=== PATIENT | male | born 1980 | race African-American/Black ===

== ENCOUNTER 2016-11-04 14:56 | Emergency (ER) | payer OTHER ==
[~2016-11-04] VITALS: Ht 172.7 cm; Wt 72.0 kg
[~2016-11-04 14:56] MED LIST: DILA100C
[2016-11-04 15:02] VITALS: BP 119/75; PULSE 73; RESP 15; TEMP 98.4; O2SAT 98
[2016-11-04] MEDS ORDERED: ZOLO100T PO (15:10)
[2016-11-04] MEDS ORDERED: DEPA500T3 PO (15:10)
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
[2016-11-04] MEDS ORDERED: KETOROLAC TROMETHAMINE 30 MG/ML (IVP) VIAL IV PUSH ONE (15:30)
--- NOTE | 2016-11-04 15:42 | RADRPT ---
EXAM DATE/TIME: 11/04/2016 15:24 [facility] COMPARISON: No previous studies available for comparison. INDICATIONS : Chest pain. MEDICAL HISTORY : None. SURGICAL HISTORY : None. ENCOUNTER: Initial ACUITY: 2 weeks PAIN SCORE: 10/10 LOCATION: Left chest FINDINGS: A single view of the chest demonstrates the lungs to be symmetrically aerated without evidence of mas s, infiltrate or effusion. The cardiomediastinal contours are unremarkable. Osseous structures are intact. CONCLUSION: 1. No acute cardiopulmonary findings. Juliocesar Avery MD on November 04, 2016 at 15:40 Board Certified Radiologist. This report was verified electronically.
[2016-11-04 15:56] LABS: AUTOMATED NEUTROPHIL # 1.9 TH/MM3 (1.8-7.7); BASOPHIL % 0.9 % (0.0-2.0); EOSINOPHIL # 0.3 TH/MM3 (0-0.4); EOSINOPHIL % 5.1 % (0.0-4.0); HEMATOCRIT 39.9 % (39.0-51.0); HEMO FLAGS DIFF FINAL; LYMPHOCYTE # 2.6 TH/MM3 (1.0-4.8); MEAN CELL VOLUME 88.9 FL (80.0-100.0); MEAN CORPUSCULAR HEMOGLOBIN 30.6 PG (27.0-34.0); MEAN CORPUSCULAR HGB CONC 34.5 % (32.0-36.0); MONO % 9.1 % (0.0-8.0); NEUT % 35.9 % (16.0-70.0); PLATELET COUNT 203 TH/MM3 (150-450); RED BLOOD COUNT 4.49 MIL/MM3 (4.50-5.90); RED CELL DISTRIBUTION WIDTH 12.6 % (11.6-17.2); WHITE BLOOD COUNT 5.3 TH/MM3 (4.0-11.0)
[2016-11-04 16:25] LABS: ANION GAP 4 MEQ/L (5-15); BICARBONATE 29.1 MEQ/L (21.0-32.0); BLOOD UREA NITROGEN 15 MG/DL (7-18); CHLORIDE 107 MEQ/L (98-107); GLOMERULAR FILTRATION RATE 117 ML/MIN (>89); SODIUM (NA) 140 MEQ/L (136-145)
[2016-11-04 16:31] LABS: CREATINE KINASE 76 U/L (39-308); POTASSIUM 4.1 MEQ/L (3.5-5.1)
--- NOTE | 2016-11-05 20:59 | EKG ---
Date Performed: 11/04/2016 Time Performed: 15:25:10 PTAGE: 36 years EKG: Sinus rhythm ST ELEVATION, PROBABLY EARLY REPOLARIZATION BORDERLINE ECG PREVIOUS TRACING : 08/29/2003 12.58 Compared to prior tracing no significant change DOCTOR: Stefano Cox Interpretating Date/Time 11/05/2016 20:51:19
== END 2016-11-04 16:57 ==
LOC: NEPE 14:56
DX: R07.89 Other chest pain (principal); F41.9 Anxiety disorder, unspecified; G40.909 Epilepsy, unspecified, not intractable, without status epilepticus; J45.909 Unspecified asthma, uncomplicated; Z79.899 Other long term (current) drug therapy; Z88.8 Allergy status to other drugs, medicaments and biological substances
CPT/HCPCS: 71010; 80048; 82550; 84484; 85025; 93005; 96374; 99285; J1885

== ENCOUNTER 2016-12-16 15:14 | Emergency (ER) | payer SELFPAY ==
[~2016-12-16 15:14] MED LIST changes: +BUPR100CR PO; +DEPA500T3 PO; -DILA100C; +WELL200T PO; +ZOLO100T PO
--- NOTE | 2016-12-16 15:21 | PD ---
Physical Exam Date Seen by Provider: Dec 16, 2016 Time Seen by Provider: 15:20 Narrative 36-year-old black male presents to emergency department by EMS for evaluation of chest pain and anxiety. The patient is paranoid that people are out against him. He wants money and want to kill them. Symptoms are moderate to severe. No alleviating factors. Vital signs reviewed. Pt waiting for bed placement. [facility] Medical Record Reviewed: No Supervised Visit with JOUSÉ: Cricket Fernandez Dec 16, 2016 15:21
[2016-12-16 15:24] VITALS: BP 130/81; PULSE 109; RESP 16; TEMP 98.8; O2SAT 98
== END 2016-12-16 16:30 | disposition left against medical advice (07) ==
LOC: NEDAMB 15:14
DX: Z53.21 Procedure and treatment not carried out due to patient leaving prior to being seen by health care provider (principal); R07.9 Chest pain, unspecified
CPT/HCPCS: 99283

== ENCOUNTER 2016-12-19 06:28 | Emergency (ER) | payer SELFPAY ==
[~2016-12-19] VITALS: Ht 170.2 cm; Wt 71.0 kg
[2016-12-19 06:36] VITALS: BP 111/61; PULSE 102; RESP 22; TEMP 98.3; O2SAT 100
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
[2016-12-19] MEDS ORDERED: ASPIRIN 81 MG CHEW TAB PO ONE (07:15)
[2016-12-19] MEDS ORDERED: hydrOXYzine PAMOATE 25 MG CAP PO ONE (07:15)
[2016-12-19] MEDS ORDERED: SODIUM CHLORID 0.9% 500 ML INJ 500 ML IV ONE (07:15)
[2016-12-19] MEDS ORDERED: SODIUM CHLORIDE 0.9% FLUSH 10 ML FLUSH IVF PRN (07:15)
[2016-12-19 07:56] LABS: BASOPHIL % 0.5 % (0.0-2.0); EOSINOPHIL # 0.2 TH/MM3 (0-0.4); EOSINOPHIL % 2.8 % (0.0-4.0); HEMATOCRIT 36.1 % (39.0-51.0); HEMO FLAGS DIFF FINAL; LYMPHOCYTE # 1.6 TH/MM3 (1.0-4.8); MEAN CELL VOLUME 89.3 FL (80.0-100.0); MEAN CORPUSCULAR HEMOGLOBIN 30.9 PG (27.0-34.0); MEAN CORPUSCULAR HGB CONC 34.6 % (32.0-36.0); MONO % 12.6 % (0.0-8.0); NEUT % 60.1 % (16.0-70.0); PLATELET COUNT 249 TH/MM3 (150-450); RED BLOOD COUNT 4.04 MIL/MM3 (4.50-5.90); RED CELL DISTRIBUTION WIDTH 13.9 % (11.6-17.2); WHITE BLOOD COUNT 6.7 TH/MM3 (4.0-11.0)
[2016-12-19 08:19] VITALS: BP 120/61; PULSE 85; RESP 18; O2SAT 97
[2016-12-19 08:20] LABS: ALT (GPT) 39 U/L (12-78); ANION GAP 9 MEQ/L (5-15); AST (GOT) 82 U/L (15-37); BLOOD UREA NITROGEN 14 MG/DL (7-18); CHLORIDE 104 MEQ/L (98-107); GLOMERULAR FILTRATION RATE 122 ML/MIN (>89); MAGNESIUM 2.2 MG/DL (1.5-2.5); POTASSIUM 3.1 MEQ/L (3.5-5.1); SODIUM (NA) 141 MEQ/L (136-145)
[2016-12-19 08:24] LABS: ALKALINE PHOSPHATASE 74 U/L (45-117); TOTAL BILIRUBIN ADULT 0.7 MG/DL (0.2-1.0)
[2016-12-19] MEDS ORDERED: POTASSIUM CHLORIDE 20 MEQ CONTROLLED RELEASE TAB PO ONE (08:30)
[2016-12-19 08:44] LABS: CREATINE KINASE 3644 U/L (39-308)
[2016-12-19 09:15] LABS: CKMB 8.7 NG/ML (0.5-3.6)
--- NOTE | 2016-12-19 09:18 | EKG ---
Date Performed: 12/19/2016 Time Performed: 06:45:24 PTAGE: 36 years EKG: Sinus rhythm VOLTAGE CRITERIA FOR LVH ABNORMAL ECG Compared to prior tracing no significant change PREVIOUS TRACING : 11/04/2016 15.25 DOCTOR: Donald Murray Interpretating Date/Time 12/19/2016 09:17:03
== END 2016-12-19 09:47 | disposition home or self-care (01) ==
LOC: NEPE 06:28
DX: F43.22 Adjustment disorder with anxiety (principal); R07.9 Chest pain, unspecified; R94.31 Abnormal electrocardiogram [ECG] [EKG]; J45.909 Unspecified asthma, uncomplicated; F32.9 Major depressive disorder, single episode, unspecified; R56.9 Unspecified convulsions; Z79.899 Other long term (current) drug therapy; Z88.8 Allergy status to other drugs, medicaments and biological substances
CPT/HCPCS: 80053; 82550; 82552; 83735; 84484; 85025; 93005; 99284; J7040

== ENCOUNTER 2017-02-19 16:12 | Observation (INO) | payer OTHER ==
[~2017-02-19] VITALS: Ht 172.7 cm; Wt 75.9 kg
[2017-02-19 16:31] VITALS: BP 118/76; PULSE 68; RESP 16; TEMP 97.8; O2SAT 100
[2017-02-19 17:48] LABS: AUTOMATED NEUTROPHIL # 2.4 TH/MM3 (1.8-7.7); BASOPHIL % 0.7 % (0.0-2.0); EOSINOPHIL # 0.1 TH/MM3 (0-0.4); EOSINOPHIL % 2.6 % (0.0-4.0); HEMATOCRIT 37.4 % (39.0-51.0); HEMOGLOBIN 13.2 GM/DL (13.0-17.0); LYMPH % 37.3 % (9.0-44.0); LYMPHOCYTE # 1.9 TH/MM3 (1.0-4.8); MEAN CORPUSCULAR HEMOGLOBIN 31.4 PG (27.0-34.0); MEAN CORPUSCULAR HGB CONC 35.3 % (32.0-36.0); MEAN PLATELET VOLUME 10.4 FL (7.0-11.0); MONOCYTE # 0.6 TH/MM3 (0-0.9); NEUT % 48.4 % (16.0-70.0); PLATELET COUNT 250 TH/MM3 (150-450); RED BLOOD COUNT 4.21 MIL/MM3 (4.50-5.90); RED CELL DISTRIBUTION WIDTH 12.7 % (11.6-17.2)
[2017-02-19 18:04] LABS: CALCIUM 8.8 MG/DL (8.5-10.1); CREATININE 0.84 MG/DL (0.60-1.30)
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
[2017-02-19 19:48] VITALS: BP 110/65; PULSE 78; RESP 18; O2SAT 99
[2017-02-19] MEDS ORDERED: LORazepam 2 MG/ML VIAL ONE (20:07)
[2017-02-19] MEDS ORDERED: LORazepam 2 MG/ML VIAL IV PUSH ONE (20:15)
[2017-02-19] MEDS ORDERED: DIVALPROEX SODIUM E.R. 500 MG TAB PO ONE (20:30)
[2017-02-19 20:32] VITALS: BP 115/75; PULSE 88; O2SAT 100
--- NOTE | 2017-02-19 20:38 | RADRPT ---
EXAM DATE/TIME: 02/19/2017 19:53 [facility] COMPARISON: No previous studies available for comparison. INDICATIONS : Headaches, seizures today. RADIATION DOSE: 56.35 CTDIvol (mGy) MEDICAL HISTORY : Seizures. Asthma. SURGICAL HISTORY : None. ENCOUNTER: Initial ACUITY: 1 day PAIN SCALE: 8/10 LOCATION: Bilateral cranial TECHNIQUE: Multiple contiguous axial images were obtained of the head. Using automated exposure control and adj ustment of the mA and/or kV according to patient size, radiation dose was kept as low as reasonably a chievable to obtain optimal diagnostic quality images. DICOM format image data is available electro nically for review and comparison. FINDINGS: CEREBRUM: The ventricles are normal for age. No evidence of midline shift, mass lesion, hemorrhage or acute in farction. No extra-axial fluid collections are seen. There are faint calcifications within the basal ganglia bilaterally. POSTERIOR FOSSA: The cerebellum and brainstem are intact. The 4th ventricle is midline. The cerebellopontine angle i s unremarkable. EXTRACRANIAL: The visualized portion of the orbits is intact. SKULL: The calvaria is intact. No evidence of skull fracture. CONCLUSION: No acute disease. Jono Sneed MD on February 19, 2017 at 20:36 Board Certified Radiologist. This report was verified electronically.
[2017-02-19] MEDS ORDERED: levETIRAcetam INJ 100 ML IV ONE (21:30)
--- NOTE | 2017-02-19 21:38 | PD ---
Physical Exam Narrative I, Dr. Cutler, have reviewed the advance practice practitioner's documentation and am in agreement, met with the patient face to face, made the diagnosis, and the medical decision making was done by me. *My assessment and Findings: Patient is a 36 year old male who comes in from [facility] due to seizures. He has been refusing his seizure medication. Patient observed to have 2 seizures in the ED. When awake, he appears to have no neurologic abnormalities. Data Data Last Documented VS Vital Signs Date Time Temp Pulse Resp B/P (MAP) Pulse Ox O2 Delivery O2 Flow Rate FiO2 02/19/17 20:32 88 115/75 (88) 100 02/19/17 19:48 18 Room Air 02/19/17 16:31 97.8 Orders Orders Complete Blood Count With Diff (02/19/17 16:51) Basic Metabolic Panel (Bmp) (02/19/17 16:51) Drug Screen, Random Urine (02/19/17 16:51) Valproic Acid (Depakene) (02/19/17 19:47) Ct Brain W/O Iv Contrast(Rout) (02/19/17 ) Lorazepam Inj (Ativan Inj) (02/19/17 20:15) Lorazepam Inj (Ativan Inj) (02/19/17 20:07) Divalproex Er (Depakote Er) (02/19/17 20:30) Levetiracetam Inj (Keppra Inj) (02/19/17 21:30) Admit Order (Ed Use Only) (02/19/17 21:47) Labs Laboratory Tests Test 02/19/17 17:05 White Blood Count 5.0 TH/MM3 Red Blood Count 4.21 MIL/MM3 Hemoglobin 13.2 GM/DL Hematocrit 37.4 % Mean Corpuscular Volume 89.0 FL Mean Corpuscular Hemoglobin 31.4 PG Mean Corpuscular Hemoglobin Concent 35.3 % Red Cell Distribution Width 12.7 % Platelet Count 250 TH/MM3 Mean Platelet Volume 10.4 FL Neutrophils (%) (Auto) 48.4 % Lymphocytes (%) (Auto) 37.3 % Monocytes (%) (Auto) 11.0 % Eosinophils (%) (Auto) 2.6 % Basophils (%) (Auto) 0.7 % Neutrophils # (Auto) 2.4 TH/MM3 Lymphocytes # (Auto) 1.9 TH/MM3 Monocytes # (Auto) 0.6 TH/MM3 Eosinophils # (Auto) 0.1 TH/MM3 Basophils # (Auto) 0.0 TH/MM3 CBC Comment DIFF FINAL Differential Comment Blood Urea Nitrogen 13 MG/DL Creatinine 0.84 MG/DL Random Glucose 91 MG/DL Calcium Level 8.8 MG/DL Sodium Level 143 MEQ/L Potassium Level 3.7 MEQ/L Chloride Level 106 MEQ/L Carbon Dioxide Level 32.0 MEQ/L Anion Gap 5 MEQ/L Estimat Glomerular Filtration Rate 127 ML/MIN Valproic Acid (Depakene) Level 24 MCG/ML MDM Supervised Visit with JOSUÉ: Yes Narrative Course Given ativan for the seizures. Loaded with Korbit. Admitted for further management. Diagnosis Primary Impression: Seizure Admitting Information Admitting Physician Requests: Admit Patsy Cutler MD Feb 19, 2017 21:38
[2017-02-19] MEDS ORDERED: SODIUM CHLORIDE 0.9% FLUSH 10 ML FLUSH IV FLUSH PRN (22:30)
[2017-02-19] MEDS ORDERED: LORazepam 2 MG/ML VIAL IV PUSH PRN (23:00)
[2017-02-20 01:48] VITALS: BP 108/54; PULSE 78; RESP 20; TEMP 97.7; O2SAT 100
[2017-02-20] MEDS: levETIRAcetam 500 MG TAB PO SCH ×3 (05:42→20:36)
[2017-02-20 06:05] VITALS: BP 124/96; PULSE 114; RESP 20; TEMP 97.7; O2SAT 100
[2017-02-20 07:16] LABS: AUTOMATED NEUTROPHIL # 2.4 TH/MM3 (1.8-7.7); BASOPHIL % 0.5 % (0.0-2.0); EOSINOPHIL # 0.1 TH/MM3 (0-0.4); EOSINOPHIL % 2.2 % (0.0-4.0); HEMATOCRIT 36.6 % (39.0-51.0); HEMOGLOBIN 12.8 GM/DL (13.0-17.0); LYMPHOCYTE # 2.2 TH/MM3 (1.0-4.8); MEAN CELL VOLUME 88.5 FL (80.0-100.0); MEAN PLATELET VOLUME 10.2 FL (7.0-11.0); MONO % 12.6 % (0.0-8.0); MONOCYTE # 0.7 TH/MM3 (0-0.9); NEUT % 44.7 % (16.0-70.0); PLATELET COUNT 248 TH/MM3 (150-450); RED BLOOD COUNT 4.14 MIL/MM3 (4.50-5.90); RED CELL DISTRIBUTION WIDTH 12.7 % (11.6-17.2); WHITE BLOOD COUNT 5.4 TH/MM3 (4.0-11.0)
[2017-02-20 07:35] LABS: BICARBONATE 28.7 MEQ/L (21.0-32.0); CALCIUM 8.3 MG/DL (8.5-10.1); CREATININE 0.81 MG/DL (0.60-1.30)
[2017-02-20 08:00] VITALS: BP 99/62; PULSE 61; RESP 16; TEMP 97.9; O2SAT 99
[2017-02-20] MEDS ORDERED: DIVALPROEX SODIUM E.R. 500 MG TAB PO SCH (09:00)
[2017-02-20] MEDS: SODIUM CHLORIDE 0.9% FLUSH 10 ML FLUSH IV FLUSH SCH ×2 (09:00→20:36)
[2017-02-20] MEDS ORDERED: PNEUMOCOCCAL POLYVALENT INJ 25 MCG/0.5 ML SYR IM ONE (10:00)
[2017-02-20] MEDS ORDERED: INFLUENZA VIRUS VACCINE (QUADRIVALENT) 0.5 ML SYR IM ONE (10:00)
[2017-02-20 12:00] VITALS: BP 101/57; PULSE 50; RESP 18; TEMP 98.2; O2SAT 95
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
[2017-02-20] MEDS ORDERED: POTASSIUM CHLORIDE 10 MEQ CONTROLLED RELEASE TAB PO ONE (15:00)
[2017-02-20 16:00] VITALS: BP 108/63; PULSE 65; RESP 18; TEMP 97.9; O2SAT 100
[2017-02-20] MEDS ORDERED: BISACODYL 10 MG SUPP RECTAL PRN (18:45)
[2017-02-20] MEDS ORDERED: SENNOSIDES 8.6 MG TAB PO PRN (18:45)
[2017-02-20] MEDS ORDERED: LACTULOSE SYRUP 20 GM/30 ML CUP PO PRN (18:45)
[2017-02-20] MEDS ORDERED: NALOXONE HCL 0.4 MG/ML AMP IV PUSH PRN (18:45)
[2017-02-20] MEDS ORDERED: LORazepam 2 MG/ML VIAL IV PUSH PRN (18:45)
--- NOTE | 2017-02-20 19:17 | MG ---
cc: MORENITA BENTON M.D. Lab No: 18-05 Date: 02/20/2017 Age: Sex: M Race: TECHNIQUE: 17 channel EEG. DESCRIPTION: Background rhythm is symmetrical alpha, frequency 8 Hz, amplitude 20 microvolts. There is mild muscle artifact present. No lateralizing features identified. No epileptiform features are seen. During drowsiness there is slowing in the theta range. Photic results in a normal driving response. Hyperventilation does not alter the background rhythm. INTERPRETATION: Normal EEG. MD JULIANNE Guthrie/ERLIN /5:55 PM /6:47 PM
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
[2017-02-20 20:00] VITALS: BP 126/82; PULSE 84; RESP 18; TEMP 98.2; O2SAT 100
[2017-02-20] MEDS ORDERED: VALPROATE INJ 500 MG in SODIUM CHLORIDE 0.9% INJ 100 ML IV ONE (20:00)
[2017-02-20] MEDS: SODIUM CHLOR 0.9% 1000 ML INJ 1,000 ML IV SCH (20:34)
[2017-02-20] MEDS: DIVALPROEX SODIUM E.R. 500 MG TAB PO SCH (20:35)
[2017-02-20] MEDS: DOCUSATE SODIUM 50 MG/SENNA 8.6 MG TAB PO SCH (20:36)
[2017-02-21] VITALS: BP_SYST 117; BP_SYST 128; BP_DIAS 67; BP_DIAS 87; PULSE 74; PULSE 81; RESP 18; TEMP 97; TEMP 98.5; O2SAT 97; O2SAT 98
[2017-02-21] MEDS: MAGNESIUM HYDROXIDE SUSP 30 ML CUP PO PRN (01:16)
[2017-02-21 01:39] LABS: BILIRUBIN, URINE NEG (NEG); BLOOD, URINE NEG (NEG); GLUCOSE,URINE NEG (NEG); KETONE, URINE NEG (NEG); MUCUS URINE FEW /lpf (OCC); NITRITE,URINE NEG (NEG); PH, URINE 7.5 (5.0-8.5); URINE COLOR YELLOW (YELLW/STRAW); URINE LEUKOCYTE ESTERASE NEG (NEG)
[2017-02-21] MEDS: SODIUM CHLOR 0.9% 1000 ML INJ 1,000 ML IV SCH (05:00)
[2017-02-21 08:23] VITALS: BP 103/59; PULSE 84; RESP 20; TEMP 98.5; O2SAT 100
[2017-02-21] MEDS: SODIUM CHLORIDE 0.9% FLUSH 10 ML FLUSH IV FLUSH SCH ×2 (09:00→20:51)
[2017-02-21] MEDS: DIVALPROEX SODIUM E.R. 500 MG TAB PO SCH ×2 (09:29→20:50)
[2017-02-21] MEDS: DOCUSATE SODIUM 50 MG/SENNA 8.6 MG TAB PO SCH ×2 (09:29→20:50)
[2017-02-21] MEDS: levETIRAcetam 500 MG TAB PO SCH ×2 (09:29→20:50)
--- NOTE | 2017-02-21 09:52 | HHI.PR ---
Subjective Remarks Follow-up seizure. The patient has reportedly had more seizure activity today. Nursing was called into the room by the corrections officers stating that the patient was appearing to have a seizure. There is concern from the nursing staff that these episodes are behavioral rather than true seizures. They believe that he is biting his cheek to induce bleeding. He at times is responsive during the events. There is no bowel or bladder incontinence. Patient reportedly had one of these episodes during EEG, which did not show any seizure activity. Objective Vitals Vital Signs Date Time Temp Pulse Resp B/P (MAP) Pulse Ox O2 Delivery O2 Flow Rate FiO2 02/21/17 08:23 98.5 84 20 103/59 (74) 100 02/21/17 00:00 97.0 81 18 117/67 (84) 97 02/21/17 00:00 98.5 74 18 128/87 (101) 98 02/20/17 20:00 98.2 84 18 126/82 (97) 100 02/20/17 16:00 97.9 65 18 108/63 (78) 100 02/20/17 12:00 98.2 50 18 101/57 (72) 95 I/O 02/20/17 02/20/17 02/20/17 02/21/17 02/21/17 02/21/17 07:00 15:00 23:00 07:00 15:00 23:00 Intake Total 825 ml 700 ml Output Total 800 ml Balance 825 ml -100 ml Intake Oral 720 ml IV Total 105 ml 700 ml Output Urine Total 800 ml Bladder Scan Volume Amount 450 ml 30 ml # Voids 1 Result Diagram: 02/20/17 0613 02/20/17 0613 Imaging Last Impressions Head CT 02/19/17 0000 Signed Impressions: Service Date/Time: February 19:53 - CONCLUSION: No acute disease. Jono Sneed MD Objective Remarks General: No acute distress. Heart: Regular rate and rhythm. No murmur. Lungs: Clear to auscultation bilaterally. No wheezes, rales, or rhonchi. Breathing is nonlabored. Abdomen: Soft, nontender, nondistended. Extremities: No lower extremity edema. Psych: Sleeping/sedated. Patient appears to wake up, but does not answer any questions. Procedures None Urinary Catheter: No Vascular Central Line Catheter: No A/P Assessment and Plan 1. Seizures: Appreciate neurology recommendations. Continue Depakote, Keppra. Ativan as needed. There may be a behavioral component with possible pseudoseizures. EEG was normal despite patient having a "seizure episode" during the EEG. 2. Urinary retention: Per nursing, bladder scan shows [address] Howard catheter. 3. Depression: Resume Zoloft, Wellbutrin. 4. Mild hypokalemia: Monitor labs. 5. DVT prophylaxis: Lovenox. Khari Sanchez MD Feb 21, 2017 09:52
[2017-02-21] MEDS: buPROPion HCL 100 MG SUSTAINED RELEASE TAB PO SCH ×2 (10:00→20:49)
[2017-02-21] MEDS: SERTRALINE HCL 100 MG TAB PO SCH (11:17)
[2017-02-21] MEDS: ENOXAPARIN SODIUM 40 MG/0.4 ML SYRINGE SQ SCH (11:17)
[2017-02-21] MEDS: NS + KCL 20 MEQ INJ 1,000 ML IV SCH (11:17)
[2017-02-21 12:05] VITALS: BP 101/56; PULSE 74; RESP 20; TEMP 98.4; O2SAT 99
--- NOTE | 2017-02-21 15:29 | HHI.PR ---
Review/Management Diagnosis seizure due to noncompliance with anticonvulsants Plan check valproic acid level in am Diagnosis/Plan: Subjective Subjective Comments No acute events reported Active Medications Current Medications Medications (Trade) Dose Ordered Sig/Kobe Route Start Time Stop Time Status Last Admin (NS Flush) 2 ml UNSCH PRN IV FLUSH 02/19/17 22:30 (NS Flush) 2 ml BID IV FLUSH 02/20/17 09:00 02/21/17 09:00 (Depakote Er) 500 mg BID PO 02/20/17 21:00 02/21/17 09:29 (Keppra) 1,000 mg Q12HR PO 02/20/17 21:00 02/21/17 09:29 (Ativan Inj) 1 mg Q4H PRN IV PUSH 02/20/17 18:45 (Narcan Inj) 0.4 mg UNSCH PRN IV PUSH 02/20/17 18:45 (Jill-Colace) 1 tab BID PO 02/20/17 21:00 02/21/17 09:29 (Milk Of Magnesia Liq) 30 ml Q12H PRN PO 02/20/17 18:45 02/21/17 01:16 (Senokot) 17.2 mg Q12H PRN PO 02/20/17 18:45 (Dulcolax Supp) 10 mg DAILY PRN RECTAL 02/20/17 18:45 (Lactulose Liq) 30 ml DAILY PRN PO 02/20/17 18:45 (Wellbutrin Sr 12 Hr) 200 mg Q12HR PO 02/21/17 10:00 (Zoloft) 200 mg DAILY PO 02/21/17 10:00 02/21/17 11:17 Potassium Chloride/Sodium Chloride 1,000 ml @ 70 mls/hr [id number] IV 02/21/17 10:00 02/21/17 11:17 (Lovenox Inj) 40 mg Q24H SQ 02/21/17 11:00 02/21/17 11:17 Allergies Allergies Coded Allergies chlorpromazine (Unverified Allergy, Unknown, 02/19/17) haloperidol (Verified Allergy, Unknown, 02/19/17) Exam I&O / VS 02/21/17 02/21/17 02/22/17 15:00 23:00 07:00 Intake Total 400 ml Balance 400 ml IV Total 400 ml Bladder Scan Volume Amount 500 ml Vital Signs Date Time Temp Pulse Resp B/P (MAP) Pulse Ox O2 Delivery O2 Flow Rate FiO2 02/21/17 12:05 98.4 74 20 101/56 (71) 99 02/21/17 08:23 98.5 84 20 103/59 (74) 100 02/21/17 00:00 97.0 81 18 117/67 (84) 97 02/21/17 00:00 98.5 74 18 128/87 (101) 98 02/20/17 20:00 98.2 84 18 126/82 (97) 100 02/20/17 16:00 97.9 65 18 108/63 (78) 100 Objective Micro and Labs Laboratory Tests Test 02/21/17 00:15 Urine Color YELLOW Urine Turbidity CLEAR Urine pH 7.5 Urine Specific [place] 1.017 Urine Protein NEG Urine Glucose (UA) NEG Urine Ketones NEG Urine Occult Blood NEG Urine Nitrite NEG Urine Bilirubin NEG Urine Urobilinogen 2.0 Urine Leukocyte Esterase NEG Urine WBC LESS THAN 1 Urine Mucus FEW Microscopic Urinalysis Comment CULT NOT INDICATED Urine Opiates Screen NEG Urine Barbiturates Screen NEG Urine Amphetamines Screen NEG Urine Benzodiazepines Screen NEG Urine Cocaine Screen NEG Urine Cannabinoids Screen NEG Justen Cardenas MD PhD Feb 21, 2017 15:29
[2017-02-21 17:00] VITALS: BP 101/50; PULSE 84; RESP 20; TEMP 98.4; O2SAT 97
[2017-02-21 18:18] LABS: AUTOMATED NEUTROPHIL # 3.1 TH/MM3 (1.8-7.7); BASOPHIL % 0.6 % (0.0-2.0); EOSINOPHIL # 0.2 TH/MM3 (0-0.4); EOSINOPHIL % 2.3 % (0.0-4.0); HEMATOCRIT 36.6 % (39.0-51.0); HEMOGLOBIN 12.8 GM/DL (13.0-17.0); LYMPH % 42.1 % (9.0-44.0); LYMPHOCYTE # 2.9 TH/MM3 (1.0-4.8); MEAN CELL VOLUME 90.5 FL (80.0-100.0); MEAN CORPUSCULAR HEMOGLOBIN 31.7 PG (27.0-34.0); MEAN PLATELET VOLUME 10.4 FL (7.0-11.0); MONO % 9.5 % (0.0-8.0); MONOCYTE # 0.7 TH/MM3 (0-0.9); NEUT % 45.5 % (16.0-70.0); PLATELET COUNT 265 TH/MM3 (150-450); RED BLOOD COUNT 4.05 MIL/MM3 (4.50-5.90); RED CELL DISTRIBUTION WIDTH 12.9 % (11.6-17.2); WHITE BLOOD COUNT 6.8 TH/MM3 (4.0-11.0)
[2017-02-21 18:42] LABS: CALCIUM 8.3 MG/DL (8.5-10.1); CREATININE 1.15 MG/DL (0.60-1.30)
[2017-02-21 20:52] VITALS: BP 120/56; RESP 18; TEMP 98.5; O2SAT 100
[2017-02-22] VITALS (7 sets, daily range): BP systolic 112–126; BP diastolic 56–66; PULSE 66–91; RESP 18–20; TEMP 97.7–98.7; O2SAT 98–100
[2017-02-22] MEDS: NS + KCL 20 MEQ INJ 1,000 ML IV SCH ×4 (00:29→21:54)
[2017-02-22] MEDS: levETIRAcetam 500 MG TAB PO SCH ×2 (08:51→20:54)
[2017-02-22] MEDS: SERTRALINE HCL 100 MG TAB PO SCH (08:52)
[2017-02-22] MEDS: DIVALPROEX SODIUM E.R. 500 MG TAB PO SCH ×2 (08:52→20:54)
[2017-02-22] MEDS: DOCUSATE SODIUM 50 MG/SENNA 8.6 MG TAB PO SCH ×2 (08:52→20:54)
[2017-02-22] MEDS: buPROPion HCL 100 MG SUSTAINED RELEASE TAB PO SCH ×2 (08:52→20:54)
[2017-02-22] MEDS: SODIUM CHLORIDE 0.9% FLUSH 10 ML FLUSH IV FLUSH SCH ×2 (09:00→20:54)
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
--- NOTE | 2017-02-22 11:16 | RADRPT ---
EXAM DATE/TIME: 02/22/2017 10:26 [place] COMPARISON: CHEST SINGLE AP, November 04, 2016, 15:24. INDICATIONS : Chest pain and shortness of breath. MEDICAL HISTORY : Seizures. Asthma SURGICAL HISTORY : None. ENCOUNTER: Subsequent ACUITY: 2 months PAIN SCORE: 8/10 LOCATION: Bilateral chest FINDINGS: A single view of the chest demonstrates the lungs to be symmetrically aerated without evidence of mas s, infiltrate or effusion. The cardiomediastinal contours are unremarkable. Osseous structures are intact. CONCLUSION: No acute disease. Rodrigo Sheffield MD on February 22, 2017 at 11:14 Board Certified Radiologist. This report was verified electronically.
[2017-02-22] MEDS: ENOXAPARIN SODIUM 40 MG/0.4 ML SYRINGE SQ SCH (11:22)
[2017-02-23 01:34] VITALS: BP 118/62; PULSE 68; RESP 17; TEMP 98.7; O2SAT 100
[2017-02-23] MEDS: MAGNESIUM HYDROXIDE SUSP 30 ML CUP PO PRN (04:54)
[2017-02-23 06:50] VITALS: BP 125/66; PULSE 72; RESP 18; TEMP 99.1; O2SAT 100
[2017-02-23] MEDS: NS + KCL 20 MEQ INJ 1,000 ML IV SCH ×2 (07:54→23:30)
[2017-02-23 08:31] VITALS: BP 123/72; PULSE 72; RESP 18; TEMP 98.7; O2SAT 100
[2017-02-23] MEDS: DOCUSATE SODIUM 50 MG/SENNA 8.6 MG TAB PO SCH ×2 (09:35→21:44)
[2017-02-23] MEDS: buPROPion HCL 100 MG SUSTAINED RELEASE TAB PO SCH ×2 (09:36→21:45)
[2017-02-23] MEDS: DIVALPROEX SODIUM E.R. 500 MG TAB PO SCH ×2 (09:36→21:43)
[2017-02-23] MEDS: SERTRALINE HCL 100 MG TAB PO SCH (09:36)
[2017-02-23] MEDS: levETIRAcetam 500 MG TAB PO SCH ×2 (09:36→21:44)
[2017-02-23] MEDS: SODIUM CHLORIDE 0.9% FLUSH 10 ML FLUSH IV FLUSH SCH ×2 (09:36→21:44)
--- NOTE | 2017-02-23 10:02 | HHI.PR ---
Subjective Remarks Follow up seizures, urinary retention. Patient has not had any further seizure activity per nursing. He reports pain and weakness of the right leg. Objective Vitals Vital Signs Date Time Temp Pulse Resp B/P (MAP) Pulse Ox O2 Delivery O2 Flow Rate FiO2 02/23/17 08:31 98.7 72 18 123/72 (89) 100 02/23/17 06:50 99.1 72 18 125/66 (85) 100 02/23/17 01:34 98.7 68 17 118/62 (80) 100 02/22/17 20:44 98.6 91 19 121/64 (83) 98 02/22/17 20:00 98.6 91 19 121/64 (83) 98 02/22/17 16:13 98.2 66 20 126/60 (82) 99 02/22/17 12:48 97.7 67 20 113/56 (75) 99 I/O 02/22/17 02/22/17 02/22/17 02/23/17 02/23/17 02/23/17 07:00 15:00 23:00 07:00 15:00 23:00 Intake Total 1500 ml 1560 ml 1000 ml Output Total 2500 ml 1000 ml 900 ml Balance -1000 ml 560 ml -900 ml 1000 ml IV Total 1500 ml 1560 ml 1000 ml Output Urine Total 2500 ml 1000 ml 900 ml # Voids 1 Result Diagram: 02/21/17 1700 02/21/17 1700 Imaging Last Impressions Chest X-Ray 02/22/17 0000 Signed Impressions: Service Date/Time: Wednesday, February 22, 2017 10:26 - CONCLUSION: No acute disease. Rodrigo Sheffield MD Head CT 02/19/17 0000 Signed Impressions: Service Date/Time: February 19:53 - CONCLUSION: No acute disease. Jono Sneed MD Objective Remarks General: No acute distress. Heart: Regular rate and rhythm. No murmur. Lungs: Clear to auscultation bilaterally. No wheezes, rales, or rhonchi. Breathing is nonlabored. Abdomen: Soft, nontender, nondistended. Extremities: No lower extremity edema. Psych: Alert, answers questions appropriately. Procedures None Urinary Catheter: No Vascular Central Line Catheter: No A/P Assessment and Plan 1. Seizures: Appreciate neurology recommendations. Continue Depakote, Keppra. Ativan as needed. There may be a behavioral component with possible pseudoseizures. EEG was normal despite patient having a "seizure episode" during the EEG. Serum Depakote level is therapeutic. 2. Urinary retention: Failed void trial yesterday. Howard catheter replaced. Consult urology. 3. Depression: Resume Zoloft, Wellbutrin. 4. Mild hypokalemia: Resolved. 5. DVT prophylaxis: Lovenox. 6. Cough: CXR is negative. Not requiring supplemental oxygen. Discharge Planning Plan for discharge when cleared by neurology, urology. Khari Sanchez MD Feb 23, 2017 10:02
[2017-02-23] MEDS: ENOXAPARIN SODIUM 40 MG/0.4 ML SYRINGE SQ SCH (11:00)
[2017-02-23 12:44] VITALS: BP 111/59; PULSE 88; RESP 17; TEMP 98.8; O2SAT 99
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
[2017-02-23 16:51] VITALS: BP 126/62; PULSE 76; RESP 18; TEMP 98.7; O2SAT 98
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
[2017-02-23 20:00] VITALS: BP 117/65; PULSE 79; RESP 20; TEMP 97.5; O2SAT 99
[2017-02-24] VITALS: BP 117/60; PULSE 79; RESP 20; TEMP 98.3; O2SAT 98
[2017-02-24 04:00] VITALS: BP 104/61; PULSE 76; RESP 20; TEMP 98.1; O2SAT 100
[2017-02-24 08:00] VITALS: BP 115/70; PULSE 72; RESP 18; TEMP 99; O2SAT 99
[2017-02-24] MEDS: SODIUM CHLORIDE 0.9% FLUSH 10 ML FLUSH IV FLUSH SCH ×2 (09:00→21:20)
[2017-02-24] MEDS: levETIRAcetam 500 MG TAB PO SCH ×2 (10:35→21:21)
[2017-02-24] MEDS: buPROPion HCL 100 MG SUSTAINED RELEASE TAB PO SCH ×2 (10:35→21:21)
[2017-02-24] MEDS: DIVALPROEX SODIUM E.R. 500 MG TAB PO SCH ×2 (10:35→21:21)
[2017-02-24] MEDS: ENOXAPARIN SODIUM 40 MG/0.4 ML SYRINGE SQ SCH (10:36)
[2017-02-24] MEDS: SERTRALINE HCL 100 MG TAB PO SCH (10:36)
[2017-02-24] MEDS: DOCUSATE SODIUM 50 MG/SENNA 8.6 MG TAB PO SCH ×2 (10:36→21:20)
--- NOTE | 2017-02-24 11:18 | HHI.PR ---
Subjective Remarks Follow up right leg weakness. The patient states that he vomited blood today. Still with weakness of his right leg. Objective Vitals Vital Signs Date Time Temp Pulse Resp B/P (MAP) Pulse Ox O2 Delivery O2 Flow Rate FiO2 02/24/17 08:00 99.0 72 18 115/70 (85) 99 02/24/17 04:00 98.1 76 20 104/61 (75) 100 02/24/17 00:00 98.3 79 20 117/60 (79) 98 02/23/17 20:00 97.5 79 20 117/65 (82) 99 02/23/17 16:51 98.7 76 18 126/62 (83) 98 02/23/17 12:44 98.8 88 17 111/59 (76) 99 I/O 02/23/17 02/23/17 02/23/17 02/24/17 02/24/17 02/24/17 07:00 15:00 23:00 07:00 15:00 23:00 Intake Total 1960 ml Output Total 900 ml 1400 ml 2800 ml Balance -900 ml 560 ml -2800 ml Intake Oral 960 ml IV Total 1000 ml Output Urine Total 900 ml 1400 ml 2800 ml Result Diagram: 02/21/17 1700 02/21/17 1700 Imaging Last Impressions Lumbar Spine MRI 02/23/17 1310 Signed Impressions: Service Date/Time: Thursday, February 23, 2017 14:45 - CONCLUSION: 1. At L5-S1 there are bilateral pars defects with a grade 1 anterolisthesis and a broad based disc bulge or mild protrusion. This results in moderate bilateral foraminal stenosis with some mild flattening of the exiting L5 nerve roots bilaterally. Cricket Molina MD Tibia/Fibula X-Ray 02/23/17 0000 Signed Impressions: Service Date/Time: Thursday, February 23, 2017 14:33 - CONCLUSION: Negative for fracture or foreign body Casey Avery MD FACR Chest X-Ray 02/22/17 0000 Signed Impressions: Service Date/Time: Wednesday, February 22, 2017 10:26 - CONCLUSION: No acute disease. Rodrigo Sheffield MD Head CT 02/19/17 0000 Signed Impressions: Service Date/Time: February 19:53 - CONCLUSION: No acute disease. Jono Sneed MD Objective Remarks General: No acute distress. Heart: Regular rate and rhythm. No murmur. Lungs: Clear to auscultation bilaterally. No wheezes, rales, or rhonchi. Breathing is nonlabored. Abdomen: Soft, nontender, nondistended. Extremities: No lower extremity edema. Weakness of right leg on exam (1-2/5 strength). Psych: Alert, answers questions appropriately. Procedures None Urinary Catheter: No Vascular Central Line Catheter: No A/P Assessment and Plan 1. Seizures: Appreciate neurology recommendations. Continue Depakote, Keppra. Ativan as needed. There may be a behavioral component with possible pseudoseizures. EEG was normal despite patient having a "seizure episode" during the EEG. Serum Depakote level is therapeutic. 2. Urinary retention: Failed void trial yesterday. Howard catheter replaced. Consult urology. 3. Depression: Resume Zoloft, Wellbutrin. 4. Mild hypokalemia: Resolved. 5. DVT prophylaxis: Lovenox. 6. Cough: CXR is negative. Not requiring supplemental oxygen. 7. Right leg weakness: Appreciate neurosurgery recommendations. MRI lumbar spine noted. Awaiting PT eval and further neurology evaluation. I spoke with the correction physician who states that if the patient is discharged, he will be transferred to their medical observation unit and outpatient follow up will be arranged. Discharge Planning Possible discharge back to department of corrections today if OK with neurology. Khari Sanchez MD Feb 24, 2017 11:18
[2017-02-24 12:29] VITALS: BP 101/68; PULSE 90; RESP 18; TEMP 98.6; O2SAT 98
[2017-02-24] MEDS ORDERED: LEVE500 PO (15:02)
[2017-02-24] MEDS ORDERED: DEPA500T3 PO (15:02)
--- NOTE | 2017-02-24 15:03 | HHI.DCPOC ---
Discharge Care Plan Diagnosis: (1) Urinary retention (2) Right leg weakness (3) Seizure Goals to Promote Your Health * To prevent worsening of your condition and complications * To maintain your health at the optimal level Directions to Meet Your Goals Take your medications as prescribed Follow your dietary instruction Follow activity as directed Keep your appointments as scheduled Take your immunizations and boosters as scheduled If your symptoms worsen call your PCP, if no PCP go to Urgent Care Center or Emergency Room Smoking is Dangerous to Your Health. Avoid second hand smoke Call the 24-hour hour crisis hotline for domestic abuse at Khari Sanchez MD Feb 24, 2017 15:03
[2017-02-24 16:00] VITALS: BP 111/58; PULSE 82; RESP 16; TEMP 97.8; O2SAT 96
[2017-02-24 20:00] VITALS: BP 108/54; PULSE 76; RESP 20; TEMP 97.5; O2SAT 99
--- NOTE | 2017-02-24 21:50 | HHI.PR ---
Review/Management Diagnosis seizure due to noncompliance with anticonvulsants stable now on therapeutic doses MRI reveals stenosis at L5-S1. ALso r/o thoracic or cervical myelopathy as cause of LE weakness Plan MRI cervical and lumbar spines Diagnosis/Plan: Subjective Subjective Comments No acute events reported No further seizures He has low back pain and is numb entire right leg. He states right leg is weak and is unable to lift the leg Active Medications Current Medications Medications (Trade) Dose Ordered Sig/Kobe Route Start Time Stop Time Status Last Admin (NS Flush) 2 ml UNSCH PRN IV FLUSH 02/19/17 22:30 (NS Flush) 2 ml BID IV FLUSH 02/20/17 09:00 02/24/17 21:20 (Depakote Er) 500 mg BID PO 02/20/17 21:00 02/24/17 21:21 (Keppra) 1,000 mg Q12HR PO 02/20/17 21:00 02/24/17 21:21 (Ativan Inj) 1 mg Q4H PRN IV PUSH 02/20/17 18:45 (Narcan Inj) 0.4 mg UNSCH PRN IV PUSH 02/20/17 18:45 (Jill-Colace) 1 tab BID PO 02/20/17 21:00 02/24/17 21:20 (Milk Of Magnesia Liq) 30 ml Q12H PRN PO 02/20/17 18:45 02/23/17 04:54 (Senokot) 17.2 mg Q12H PRN PO 02/20/17 18:45 (Dulcolax Supp) 10 mg DAILY PRN RECTAL 02/20/17 18:45 02/22/17 06:25 (Lactulose Liq) 30 ml DAILY PRN PO 02/20/17 18:45 (Wellbutrin Sr 12 Hr) 200 mg Q12HR PO 02/21/17 10:00 02/24/17 21:21 (Zoloft) 200 mg DAILY PO 02/21/17 10:00 02/24/17 10:36 Potassium Chloride/Sodium Chloride 1,000 ml @ 70 mls/hr [id number] IV 02/21/17 10:00 02/23/17 23:30 (Lovenox Inj) 40 mg Q24H SQ 02/21/17 11:00 02/24/17 10:36 Allergies Allergies Coded Allergies chlorpromazine (Unverified Allergy, Unknown, 02/19/17) haloperidol (Verified Allergy, Unknown, 02/19/17) Exam I&O / VS 02/24/17 02/24/17 02/25/17 15:00 23:00 07:00 Output Total 2800 ml Balance -2800 ml Output Urine Total 2800 ml Vital Signs Date Time Temp Pulse Resp B/P (MAP) Pulse Ox O2 Delivery O2 Flow Rate FiO2 02/24/17 16:00 97.8 82 16 111/58 (75) 96 02/24/17 12:29 98.6 90 18 101/68 (79) 98 02/24/17 08:00 99.0 72 18 115/70 (85) 99 02/24/17 04:00 98.1 76 20 104/61 (75) 100 02/24/17 00:00 98.3 79 20 117/60 (79) 98 Exam Comments alert, speech normal CN intact MOTOR 5/5 BUE . 5/5 LLE 1/5 right iliopsoas, quad, hamstring, tibialis anterior DTR 1+ BUE and BLE , no Babinski Justen Cardenas MD PhD Feb 24, 2017 21:50
[2017-02-25] VITALS: BP 108/57; PULSE 80; RESP 20; TEMP 98.4; O2SAT 98
[2017-02-25] MEDS: NS + KCL 20 MEQ INJ 1,000 ML IV SCH (02:55)
[2017-02-25 04:00] VITALS: BP 117/67; PULSE 78; RESP 20; TEMP 98.3; O2SAT 99
[2017-02-25] MEDS: buPROPion HCL 100 MG SUSTAINED RELEASE TAB PO SCH (08:19)
[2017-02-25] MEDS: DOCUSATE SODIUM 50 MG/SENNA 8.6 MG TAB PO SCH (08:19)
[2017-02-25] MEDS: levETIRAcetam 500 MG TAB PO SCH (08:19)
[2017-02-25] MEDS: DIVALPROEX SODIUM E.R. 500 MG TAB PO SCH (08:19)
[2017-02-25 08:26] VITALS: BP 111/65; PULSE 72; RESP 20; TEMP 98.6; O2SAT 98
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
[2017-02-25] MEDS: ENOXAPARIN SODIUM 40 MG/0.4 ML SYRINGE SQ SCH (10:07)
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
--- NOTE | 2017-02-25 10:13 | HHI.PR ---
Subjective Remarks Follow up seizures, right leg weakness. Patient just returned from MRI. He reports numbness and weakness of the right leg. Objective Vitals Vital Signs Date Time Temp Pulse Resp B/P (MAP) Pulse Ox O2 Delivery O2 Flow Rate FiO2 02/25/17 08:26 98.6 72 20 111/65 (80) 98 02/25/17 04:00 98.3 78 20 117/67 (84) 99 02/25/17 00:00 98.4 80 20 108/57 (74) 98 02/24/17 20:00 97.5 76 20 108/54 (72) 99 02/24/17 16:00 97.8 82 16 111/58 (75) 96 02/24/17 12:29 98.6 90 18 101/68 (79) 98 I/O 02/24/17 02/24/17 02/24/17 02/25/17 02/25/17 02/25/17 07:00 15:00 23:00 07:00 15:00 23:00 Output Total 2800 ml 1000 ml 600 ml Balance -2800 ml -1000 ml -600 ml Output Urine Total 2800 ml 1000 ml 600 ml # Bowel Movements 0 0 Result Diagram: 02/21/17 1700 02/21/17 1700 Imaging Last Impressions Lumbar Spine MRI 02/23/17 1310 Signed Impressions: Service Date/Time: Thursday, February 23, 2017 14:45 - CONCLUSION: 1. At L5-S1 there are bilateral pars defects with a grade 1 anterolisthesis and a broad based disc bulge or mild protrusion. This results in moderate bilateral foraminal stenosis with some mild flattening of the exiting L5 nerve roots bilaterally. Cricket Molina MD Tibia/Fibula X-Ray 02/23/17 0000 Signed Impressions: Service Date/Time: Thursday, February 23, 2017 14:33 - CONCLUSION: Negative for fracture or foreign body Casey Avery MD FACR Chest X-Ray 02/22/17 0000 Signed Impressions: Service Date/Time: Wednesday, February 22, 2017 10:26 - CONCLUSION: No acute disease. Rodrigo Sheffield MD Head CT 02/19/17 0000 Signed Impressions: Service Date/Time: February 19:53 - CONCLUSION: No acute disease. Jono Sneed MD Objective Remarks General: No acute distress. Heart: Regular rate and rhythm. No murmur. Lungs: Clear to auscultation bilaterally. No wheezes, rales, or rhonchi. Breathing is nonlabored. Abdomen: Soft, nontender, nondistended. Extremities: No lower extremity edema. Weakness of right leg on exam (1-2/5 strength). Psych: Alert, answers questions appropriately. Procedures None Urinary Catheter: No Vascular Central Line Catheter: No A/P Assessment and Plan 1. Seizures: Appreciate neurology recommendations. Continue Depakote, Keppra. Ativan as needed. There may be a behavioral component with possible pseudoseizures. EEG was normal despite patient having a "seizure episode" during the EEG. Serum Depakote level is therapeutic. 2. Urinary retention: Failed void trial. Continue Howard catheter. Appreciate urology recommendations. 3. Depression: Resume Zoloft, Wellbutrin. 4. Mild hypokalemia: Resolved. 5. DVT prophylaxis: Lovenox. 6. Cough: CXR is negative. Not requiring supplemental oxygen. 7. Right leg weakness: Appreciate neurosurgery recommendations. MRI lumbar spine noted. Appreciate PT recommendations. Patient was able to stand with a walker during physical therapy. MRI cervical and thoracic spine pending. Appreciate neurology recommendations. I spoke with the custodial physician again today, who states that if the patient is discharged he will be transferred to their medical observation unit and outpatient follow up will be arranged. Discharge Planning Possible discharge back to department of corrections today if OK with neurology. Khari Sanchez MD Feb 25, 2017 10:13
[2017-02-25 12:15] VITALS: BP 111/67; PULSE 95; RESP 20; TEMP 98.9; O2SAT 98
--- NOTE | 2017-02-25 12:15 | HHI.DS ---
Discharge Summary Admission Date Feb 19, 2017 at 21:49 Discharge Date: Feb 25, 2017 Admitting Diagnosis Seizure; hx of seizure d/o; medication non-compliance (1) Seizure ICD Code: R56.9 - Unspecified convulsions Status: Acute (2) Urinary retention ICD Code: R33.9 - Retention of urine, unspecified (3) Right leg weakness ICD Code: R29.898 - Other symptoms and signs involving the musculoskeletal system Procedures None Brief History - From Admission 46-year-old male with history of seizure disorder, noncompliance presents to the emergency department for evaluation following a seizure. Patient is currently in [facility]. He has not been taking his medication for the last week, voluntarily refusing it. Patient had a witnessed seizure prior to admission while at the [facility]. He had another seizure a day prior. Patient reports head pain and body aches. Denies any abdominal pain, nausea, vomiting. There is no tongue biting or incontinence during his seizure prior to arrival. Patient has no other symptoms to report at this time. CBC/BMP: 02/21/17 1700 02/21/17 1700 Imaging Last Impressions Thoracic Spine MRI 02/25/17 0000 Signed Impressions: Service Date/Time: Saturday, February 25, 2017 08:45 - CONCLUSION: 1. Benign liver cyst. 2. Unremarkable MRI thoracic spine. Mushtaq Borrego MD Cervical Spine MRI 02/25/17 0000 Signed Impressions: Service Date/Time: Saturday, February 25, 2017 08:45 - CONCLUSION: 1. Minimal disc bulge at C3-4. 2. Otherwise unremarkable MRI cervical spine. Mushtaq Borrego MD Lumbar Spine MRI 02/23/17 1310 Signed Impressions: Service Date/Time: Thursday, February 23, 2017 14:45 - CONCLUSION: 1. At L5-S1 there are bilateral pars defects with a grade 1 anterolisthesis and a broad based disc bulge or mild protrusion. This results in moderate bilateral foraminal stenosis with some mild flattening of the exiting L5 nerve roots bilaterally. Cricket Molina MD Tibia/Fibula X-Ray 02/23/17 0000 Signed Impressions: Service Date/Time: Thursday, February 23, 2017 14:33 - CONCLUSION: Negative for fracture or foreign body Casey Avery MD FACR Chest X-Ray 02/22/17 0000 Signed Impressions: Service Date/Time: Wednesday, February 22, 2017 10:26 - CONCLUSION: No acute disease. Rodrigo Sheffield MD Head CT 02/19/17 0000 Signed Impressions: Service Date/Time: February 19:53 - CONCLUSION: No acute disease. Jono Sneed MD PE at Discharge General: No acute distress. Heart: Regular rate and rhythm. No murmur. Lungs: Clear to auscultation bilaterally. No wheezes, rales, or rhonchi. Breathing is nonlabored. Abdomen: Soft, nontender, nondistended. Extremities: No lower extremity edema. Weakness of right leg on exam (1-2/5 strength). Psych: Alert, answers questions appropriately. Hospital Course The patient was admitted for management of seizure secondary to noncompliance with medications. Neurology was consulted. He was restarted on Depakote. Keppra was added. EEG was normal. Patient continued to have intermittent episodes of seizure-like activity. One of these episodes reportedly occurred during the EEG. He developed urinary retention. Howard catheter was placed. Voiding trial was attempted, but patient continued to have urinary retention and the Howard catheter was replaced. Urology was consulted. The patient reported numbness and weakness of his right leg. MRI of the lumbar spine was done and neurosurgery was consulted. No surgical intervention was required. Neurology ordered an MRI of the cervical and thoracic spines. No acute issues were noted. The patient was cleared for discharge by neurology. He was felt to be stable for [facility]. Pt Condition on Discharge: Stable Discharge Disposition: Dis to [facility] [employer] [facility] Discharge Time: > 30 minutes Discharge Instructions DIET: Follow Instructions for: As Tolerated, No Restrictions Activities you can perform: Regular-No Restrictions Follow up Referrals: Neurology - 1 Week PCP Follow-up - 2 Weeks New Medications: Divalproex ER (Depakote ER) 500 Mg Mikie 500 MG PO BID for Seizure Control, #60 TAB 0 Refills Levetiracetam (Keppra) 500 Mg Tab 1000 MG PO Q12HR for Seizure Control, #60 TAB 0 Refills Continued Medications: Bupropion HCl ER 12 HR (Wellbutrin SR 12 HR) 200 Mg Tab 200 MG PO Q12HR for Control Depression, TAB 0 Refills Sertraline (Zoloft) 100 Mg Tab 200 MG PO DAILY, #30 TAB 0 Refills Discontinued Medications: Bupropion HCl ER 12 HR (Wellbutrin SR 12 HR) 100 Mg Tab 100 MG PO Q12HR for Control Depression for 7 Days, #14 TAB 0 Refills Divalproex ER (Depakote ER) 500 Mg Mikie 500 MG PO DAILY for Control Seizures, #30 TAB 0 Refills Sertraline (Zoloft) 100 Mg Tab 100 MG PO DAILY, #7 TAB 0 Refills Khari Sanchez MD Feb 25, 2017 12:15
[2017-02-25] MEDS: SERTRALINE HCL 100 MG TAB PO SCH (12:44)
== END 2017-02-25 15:29 ==
LOC: NEPD 16:12 → INTOOBSV 21:49 → NEDA 21:49 → EEVIPCON 21:49 → N05A 22:58
PROVIDERS: ADMIT Family Medicine; ATTEND Family Medicine
DX: G40.909 Epilepsy, unspecified, not intractable, without status epilepticus (principal); F32.9 Major depressive disorder, single episode, unspecified; J45.909 Unspecified asthma, uncomplicated; R07.9 Chest pain, unspecified; R06.02 Shortness of breath; R51 Headache; M54.16 Radiculopathy, lumbar region; R53.1 Weakness; R29.898 Other symptoms and signs involving the musculoskeletal system; R33.9 Retention of urine, unspecified; K59.00 Constipation, unspecified; R39.12 Poor urinary stream; E87.6 Hypokalemia; R20.0 Anesthesia of skin; R05 Cough; K92.0 Hematemesis; M51.26 Other intervertebral disc displacement, lumbar region; M48.061 Spinal stenosis, lumbar region without neurogenic claudication; Z87.891 Personal history of nicotine dependence; Z87.828 Personal history of other (healed) physical injury and trauma; Z91.14 Patient's other noncompliance with medication regimen; Z79.899 Other long term (current) drug therapy; Z23 Encounter for immunization
CPT/HCPCS: 70450; 71045; 72141; 72146; 72148; 73590; 80048; 80164; 80307; 81001; 85025; 90471; 90472; 90686; 90732; 95819; 96365; 96366; 96372; 96375; 96376; 97161; 99285; G0378; J1650; J1953; J2060; J3480; J7030; G0008; G0009; Q2038